=== PATIENT | male | born 1975 | race Caucasian/White ===

== ENCOUNTER 2016-06-04 20:16 | Emergency (ER) | payer SELFPAY ==
[~2016-06-04] VITALS: Ht 182.9 cm; Wt 84.1 kg
[~2016-06-04 20:16] MED LIST: NPR500T PO; OXYC-474 PO
[2016-06-04 20:33] VITALS: BP 140/86; PULSE 99; RESP 16; O2SAT 98
--- NOTE | 2016-06-04 21:07 | DRSVH ---
PROCEDURE: X-RAY LEFT KNEE, THREE VIEWS ([id number]) INDICATIONS: Twisting injury and left knee pain. TECHNIQUE: 3 views of the knee were acquired. COMPARISON: None. FINDINGS: Bones: No fractures or dislocations. No suspicious bony lesions. Soft tissues: No joint effusion. No suspicious soft tissue calcifications. IMPRESSION: No fractures or dislocation. Dictated by: Michelle Barraza M.D. on 06/04/2016 at 21:06 Approved by: Michelle Barraza M.D. on 06/04/2016 at 21:07
--- NOTE | 2016-06-04 21:07 | DRSVH ---
PROCEDURE: X-RAY LEFT ANKLE, MINIMUM THREE VIEWS ([id number]) INDICATIONS: Twisting injury and left ankle pain. TECHNIQUE: 3 views of the ankle were acquired. COMPARISON: None. FINDINGS: Bones: No fractures or dislocations. Ankle mortise is normally aligned. No suspicious bony lesions . Soft tissues: No tibiotalar joint effusion. Achilles tendon appears normal. IMPRESSION: No fracture or dislocation. Dictated by: Michelle Barraza M.D. on 06/04/2016 at 21:05 Approved by: Michelle Barraza M.D. on 06/04/2016 at 21:06
--- NOTE | 2016-06-04 21:50 | ED.REPORT ---
HPI-Extremity Problem Lower Date of Service Jun 04, 2016 ED Provider: Dimitri Hogue DO A 41 year old male with no pertinent medical history presents to the ED complaining of left knee and ankle pain. The pt was playing basketball this evening when he slipped in the mud. His fell with his left leg behind him and his left ankle twisted. He experienced immediate pain at this point and the pain has persisted since. The pt is ambulatory but with pain. Nursing Notes Stated Complaint: LEFT KNEE/ANKLE INJURY Chief Complaint: Extremity Trauma Nursing Notes Reviewed: Yes Allergies: Coded Allergies: No Known Allergies (Unverified , 06/04/16) Scheduled PRN Naproxen (Naproxen) 500 Mg Tab 500 MG PO BID PRN PRN For Pain Oxycodone (Roxicodone) 5 Mg Tablet 2.5-5 MG PO QID PRN PRN For Pain General Time Seen by MD: 21:49 Chief Complaint Knee injury left Hx Obtained From: Patient Arrived By: Walk-in Onset Occurred: 1 - 4 hours ago Symptom Duration: Since onset Recent Healthcare: No recent doctor visit, No recent hospitalization Similar Sx Previous: No Past Medical History Past Medical History Ulcer Pneumothorax Femur fracture Past Surgical History Reports: Appendectomy Smoking History Former Smoker Social History Alcohol Use: "Social" Other Social History: Good social support Ambulatory Status Independent Review of Systems Constitutional: Denies: Fever Musculoskeletal: Reports: Extremity pain, Joint pain, Denies: Back pain Skin: Denies Rash Complete sys rev & neg: except as marked. Respiratory: Denies: Non-productive cough Cardiovascular: Denies: Chest pain GI: Denies: Abdominal pain Physical Exam Initial Vital Signs Vital Signs (First) Date Time Temp Pulse Resp B/P Pulse Ox O2 Delivery O2 Flow Rate FiO2 06/04/16 20:33 36.8 99 16 140/86 98 Room Air Initial VS: Reviewed Lower Extremity / Pelvis / MS: Neurologic intact, Vascular intact anterior and posterior laxity of left knee quadriceps mechanism intact Ankle / Foot: No deformity left lateral ankle instability and swelling General/Constitutional: Awake, Alert Respiratory / Chest: Atraumatic, No respiratory distress Cardiovascular: Heart rate NL, Regular rhythm Skin: Atraumatic, Color NL, No rash, Warm, Dry Neurologic: Oriented X3, Speech NL, No motor deficits, No sensory deficits Head / Eyes: Atraumatic, Normocephalic ENT: Atraumatic, Airway patent, Mucous membranes moist Neck: Atraumatic, Supple, Full range of motion Abdomen: Atraumatic Back: Atraumatic, Full range of motion Upper Extremity / MS: Atraumatic, Full range of motion Psychiatric: Affect NL, Mood NL Interpretation & Diagnostics Pulse Oximetry Interpretation Pulse Oximetry Interpretation: 98% on room air Pulse Oximetry: Pulse Ox normal X-Ray Interpretation Xray Interpretation: IMPRESSION: No fractures or dislocation. Dictated by: Michelle Barraza M.D. on 06/04/2016 at 21:06 Approved by: Michelle Barraza M.D. on 06/04/2016 at 21:07 X-Ray Ordered: Knee left Interpretation / Wet Read by: Interpret - Radiologist Xray Interpretation: IMPRESSION: No fracture or dislocation. Dictated by: Michelle Barraza M.D. on 06/04/2016 at 21:05 Approved by: Michelle Barraza M.D. 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 He is informed of his radiology results, diagnosis, and the plan for discharge. The pt understands and agrees with the plan. All questions are addressed at this time. Counseled Regarding: Diagnosis, Lab results, Need for follow-up, When/why to return to ED Discharge & Departure Impression: Primary Impression: Left knee sprain Encounter type: initial encounter Involved ligament of knee: unspecified ligament Qualified Code: S83.92XA - Sprain of unspecified site of left knee, initial encounter Additional Impression: Left ankle sprain Encounter type: initial encounter Involved ligament of ankle: unspecified ligament Qualified Code: S93.402A - Sprain of unspecified ligament of left ankle, initial encounter Disposition: Home Discharge Condition All VS Reviewed: Yes Condition: Stable Patient Instructions: Ankle Sprain (GEN), Knee Sprain (ED), Crutch Instructions (ED) Additional Instructions: I suspect that you have injured your cruciate ligament and sprained your ankle. Use crutches and do not bear weight on your left leg. Take Motrin three times daily as directed for moderate pain. Follow up with the orthopedist. If your symptoms do not improve in one week, you may need to consider an MRI. Return to the emergency department if you develop any new or worsening symptoms. Take 1- 2 Percocet every 6 hours as needed for severe pain do not drink alcohol or consume acetaminophen or operate motor vehicles while under the influence of Percocet. Referrals: Phong Goodrich MD [facility] Attestation Portions of this note were transcribed by Dirk Elder. I, Dr. Hogue personally performed the history, physical exam and medical decision-making; I reviewed and confirmed the accuracy of the information in the transcribed note. Signed by: Mellissa Childress, 06/04/2016 and 23:05. copies to: Phong Goodrich MD; [facility] Dimitri Hogue DO Jun 04, 2016 21:50 DIRK ELDER Jun 04, 2016 22:43
[2016-06-04] MEDS ORDERED: _oxyCODONE/APAP 5-325 mg Tablet PO PRN (22:35)
[2016-06-04] MEDS ORDERED: Ketorolac 30 mg/mL 2 mL Inj IM ONE (22:35)
== END 2016-06-04 23:45 | disposition home or self-care (01) ==
LOC: SED 20:16
DX: S83.92XA Sprain of unspecified site of left knee, initial encounter (principal); S93.402A Sprain of unspecified ligament of left ankle, initial encounter; W01.0XXA Fall on same level from slipping, tripping and stumbling without subsequent striking against object, initial encounter; X50.1XXA Overexertion from prolonged static or awkward postures, initial encounter; Y92.9 Unspecified place or not applicable; Y93.67 Activity, basketball; Y99.8 Other external cause status; F17.200 Nicotine dependence, unspecified, uncomplicated
CPT/HCPCS: 73562; 73610; 96372; 99284; J1885